=== PATIENT | male | born 1965 | race Caucasian/White ===

== ENCOUNTER → 2023-10-15 15:08 | Outpatient (REF) | payer BC, SELFPAY | LOC: RAD 15:08 | PROVIDERS: ATTENDING PHYSICIAN Nurse Practitioner; FAMILY PHYSICIAN Family Medicine | DX: M25.561 Pain in right knee (principal) | CPT/HCPCS: 73564 ==

== ENCOUNTER → 2023-11-16 06:59 | Outpatient (REF) | payer BC, SELFPAY ==
[2023-11-16 07:59] LABS: HDL Cholesterol 63 mg/dl; LDL Cholesterol, Calculated 107 mg/dl; Total Cholesterol 180 mg/dl (50-199); Triglyceride 54 mg/dl (10-149); Very Low Density Lipoprotein 10 mg/dl (0-30)
== END ==
LOC: REG 06:59
PROVIDERS: ATTENDING PHYSICIAN Nurse Practitioner; FAMILY PHYSICIAN Family Medicine
DX: E78.2 Mixed hyperlipidemia (principal)
CPT/HCPCS: 36415; 80061

== ENCOUNTER → 2024-03-11 16:26 | Outpatient (REF) | payer BC, SELFPAY | LOC: PAVMRI 16:26 | PROVIDERS: ATTENDING PHYSICIAN Physician Assistant Surgical; FAMILY PHYSICIAN Family Medicine | DX: M19.011 Primary osteoarthritis, right shoulder (principal); M75.41 Impingement syndrome of right shoulder | CPT/HCPCS: 73221 ==

== ENCOUNTER 2024-06-27 17:39 | Emergency (ER) | payer BC, SELFPAY ==
[2024-06-27 17:42] VITALS: BP 129/81
--- NOTE | 2024-06-27 17:57 | ED.MUSCINJ ---
HPI-Injury
General
Chief Complaint: Musculo-Skeletal Complaint
Source: patient
Exam Limitations: none
Time Seen by Provider: 06/27/24 17:43
History of Present Illness-Injury
Initial Injury comments:
58-year-old male [id number] presents complaining of right elbow pain starting mainly today. He was doing curls and felt a pop in his elbow. He complains of pain to the lateral aspect of the elbow hurts worse to lift his arm up. He states
he has been having some discomfort in his elbow recently. No shoulder discomfort. No numbness. No other complaint
Past History
Past History
ED Past Medical History: CAD
Social History
Tobacco: Non-smoker
Alcohol: None
Drug: None
Living: with family
Phy Exam
Physical Exam
Physical Exam:
General: Well-appearing male no acute respiratory distress
HEENT: Normocephalic atraumatic
Musculoskeletal exam: Right elbow tender laterally increased pain with resisted wrist extension. He has a palpable distal bicep tendon that is nontender there is slight increased pain with resisted wrist flexion. No significant deformity or
swelling
Injury Course
Orders/Labs/Results
Orders:
Orders
06/27/24 17:56
CR Elbow - Right Min 3 Views Urgent
Comment:
Reason For Exam: pain
MDM/Problems Addressed
Differential Diagnosis Includes:
Right elbow pain. Consider sprain versus strain versus tendinitis versus arthritis
X-ray right elbow pending
*Critical Care Note
Total Time (30-74mins, 75-104mins- exclusive of procedures): Not Applicable
Update Note
Update Note:
X-rays show significant degenerative changes but no other acute finding. No obvious intra-articular effusion.
Suspect tendinitis of the elbow. Wrist splint applied. Recommend follow-up with orthopedics
ED Attending Note
-
Portions of this chart may have been created with voice recognition software.� Occasional wrong word or��sound alike� substitutions may have occurred due to the inherent limitations of voice recognition software.
Discharge Plan
Departure
Patient Disposition: Home (Routine Discharge)
Date of Disposition: 06/27/24
Time of Disposition: 18:36
Patient with high blood pressure during this ER visit?: No
Discharge Problem:
Elbow sprain
Instructions: Muscle and Bone Pain (DC)
Prescriptions:
No Action
atorvastatin 40 MG tablet
40 mg PO QPM Qty: 30 11RF
aspirin 81 MG tablet,chewable
81 mg PO DAILY Qty: 100 5RF
ticagrelor [Brilinta] 90 MG tablet
90 mg PO BID Qty: 60 11RF
metoprolol succinate [Toprol XL] 25 MG tablet extended release 24 hr
25 mg PO HS 30 Days Qty: 30 5RF
Referrals:
Jose C Nelson MD [Family Provider] -
Activity Restrictions/Additional Instructions:
Rest. Consider anti-inflammatories. Use the wrist splint to rest the elbow. Follow-up orthopedics
Interventions
Interventions:
*Risk Screen - Suicide Last Done: 06/27/24 18:15
*General Assessment Last Done: 06/27/24 18:15
*Neglect/Abuse Screening Last Done: 06/27/24 18:15
*ED- Fall Risk Assessment Last Done: 06/27/24 18:15
ED-Musculoskeletal Assessment Last Done: 06/27/24 18:15
Discharge Date and Time
Print Language: CAMBODIAN
== END 2024-06-27 18:52 | disposition home or self-care (01) ==
LOC: EMR 17:39
PROVIDERS: EMERGENCY PHYSICIAN Emergency Medicine; FAMILY PHYSICIAN Family Medicine
DX: S53.401A Unspecified sprain of right elbow, initial encounter (principal); X50.0XXA Overexertion from strenuous movement or load, initial encounter
CPT/HCPCS: 99283; 29125; 73080

== ENCOUNTER → 2025-01-02 06:54 | Outpatient (REF) | payer BC, SELFPAY ==
[2025-01-02 07:48] LABS: HDL Cholesterol 65 mg/dl; LDL Cholesterol, Calculated 84 mg/dl; Very Low Density Lipoprotein 9 mg/dl (0-30)
== END ==
LOC: REG 06:54
PROVIDERS: ATTENDING PHYSICIAN Student in an Organized Health Care Education/Training Program; FAMILY PHYSICIAN Family Medicine
DX: I25.10 Atherosclerotic heart disease of native coronary artery without angina pectoris (principal)
CPT/HCPCS: 36415; 80061